=== PATIENT | male | born 1955 | race Caucasian/White ===

== ENCOUNTER 2019-06-20 08:37 | Observation (INO) ==
[2019-06-20] MEDS ORDERED: ALUM/MAG/SIMETH/LIDO VISC 1:1 30 ML BOTTLE PO ONE (09:12)
[2019-06-20] MEDS ORDERED: ALUM/MAG/SIMETH/LIDO VISC 1:1 30 ML BOTTLE PO STA (09:14)
[2019-06-20] MEDS ORDERED: ASPIRIN 325 MG TABLET PO STA (09:14)
[2019-06-20 09:19] LABS: Basophils % 0.3 % (0.0-0.8); Eosinophils % 0.3 % (0.00-10.9); Hematocrit 46.4 VOL% (42.0-52.0); Hemoglobin 15.6 GM/DL (14.0-18.0); Immature Granulocytes % 0.6 %; Immature Granulocytes Absolute 0.08 #; Lymphocytes # 1.1 10*3/uL (1.4-4.0); Mean Corpuscular HGB Conc 33.6 GM/DL (32-36); Mean Corpuscular Volume 92.4 FL (87-102); Mean Platelet Volume 10.2 FL (9.6-12.0); Monocytes % 14.6 % (1.7-12.7); Neutrophils % 76.2 % (38.7-73.9); Platelet Count 234 T/CUMM (130-400); Red Blood Count 5.02 MC/CUMM (3.8-5.5)
[2019-06-20] MEDS ORDERED: NITROGLYCERIN SL 0.4 MG TABLET SL PRN (09:25)
[2019-06-20] MEDS ORDERED: FUROSEMIDE 40 MG/4 ML VIAL IV STA (09:35)
[2019-06-20] MEDS ORDERED: MORPHINE 4 MG/1 ML VIAL IV STA ×2 (09:36→11:01)
[2019-06-20 09:39] LABS: Albumin 3.9 G/DL (3.4-5.0); Bilirubin,Total 0.7 MG/DL (0.2-1.0); Calcium 8.6 MG/DL (8.5-10.1); Osmolality,Calculated 269.1 MOS/KG (273-304); Total Protein 6.7 G/DL (6.4-8.3)
[2019-06-20] MEDS ORDERED: NITROGLYCERIN DRIP 50 MG/250 ML BOTTLE IV PRN (11:04)
[2019-06-20] MEDS ORDERED: ACETAMINOPHEN 325 MG TABLET PO PRN (11:31)
[2019-06-20] MEDS ORDERED: DOCUSATE SODIUM 100 MG CAPSULE PO PRN (11:31)
[2019-06-20] MEDS ORDERED: MORPHINE 4 MG/1 ML VIAL IV PRN (11:31)
[2019-06-20 13:01] LABS: Risk Ratio 4.33; Thyroid Stimulating Hormone 5.47 uIU/ml (0.358-3.74); VLDL CHOLESTEROL 14.2 MG/DL
[2019-06-20] MEDS: PANTOPRAZOLE 40 MG VIAL IV SCH (13:15)
[2019-06-20] MEDS ORDERED: MORPHINE 4 MG/1 ML VIAL IV ONE (14:07)
[2019-06-20] MEDS: GABAPENTIN 100 MG CAPSULE PO SCH ×2 (14:55→21:58)
[2019-06-20] MEDS: ACETAMINOPHEN 325 MG TABLET PO SCH ×2 (14:56→21:59)
[2019-06-20] MEDS: traMADol 50 MG TABLET PO SCH ×2 (14:56→21:59)
[2019-06-20] MEDS ORDERED: HYDROmorphone 2 MG/1 ML VIAL IV PRN (14:58)
[2019-06-20] MEDS ORDERED: INDOMETHACIN 50 MG CAPSULE PO SCH (14:58)
[2019-06-20 15:10] LABS: ABG Base Excess 1.6 MMOL/L (-2.5-2.5); ABG HCO3 25.7 MMOL/L (20-26); ABG Oxygen Saturation 95.6 % (95-100); ABG PCO2 40.5 MM HG (35-48); ABG PH 7.418 (7.35-7.45); ABG PO2 75.1 MM HG (80-95); ABG TCO2 21.9 MMOL/L (23-27)
[2019-06-20] MEDS: FLECAINIDE 100 MG TABLET PO SCH (21:57)
[2019-06-20] MEDS: INDOMETHACIN 25 MG CAPSULE PO SCH (21:58)
[2019-06-20] MEDS: METOPROLOL TARTRATE 25 MG TABLET PO SCH (21:59)
[2019-06-20] MEDS: APIXABAN 5 MG TABLET PO SCH (21:59)
[2019-06-21 04:52] LABS: Basophils # 0.1 10*3/uL (0.0-0.2); Basophils % 0.3 % (0.0-0.8); Eosinophils % 0.1 % (0.00-10.9); Hematocrit 46.2 VOL% (42.0-52.0); Hemoglobin 14.6 GM/DL (14.0-18.0); Immature Granulocytes % 0.6 %; Immature Granulocytes Absolute 0.11 #; Lymphocytes # 1.4 10*3/uL (1.4-4.0); Lymphocytes % 7.2 % (21.2-54.2); Mean Corpuscular HGB Conc 31.6 GM/DL (32-36); Mean Corpuscular Volume 96.7 FL (87-102); Mean Platelet Volume 10.6 FL (9.6-12.0); Monocytes % 14.6 % (1.7-12.7); Neutrophils % 77.2 % (38.7-73.9); Platelet Count 224 T/CUMM (130-400); Red Blood Count 4.78 MC/CUMM (3.8-5.5); Red Cell Distribution Width 12.9 % (9.3-17.3); White Blood Count 19.4 T/CUMM (4-12)
[2019-06-21 05:14] LABS: Albumin 3.2 G/DL (3.4-5.0); Bilirubin,Total 1.1 MG/DL (0.2-1.0); Calcium 8.3 MG/DL (8.5-10.1); Osmolality,Calculated 264.7 MOS/KG (273-304); Total Protein 6.7 G/DL (6.4-8.3)
[2019-06-21] MEDS: FLECAINIDE 100 MG TABLET PO SCH (08:55)
[2019-06-21] MEDS: traMADol 50 MG TABLET PO SCH (08:56)
[2019-06-21] MEDS: INDOMETHACIN 25 MG CAPSULE PO SCH (08:56)
[2019-06-21] MEDS: ACETAMINOPHEN 325 MG TABLET PO SCH (08:56)
[2019-06-21] MEDS: APIXABAN 5 MG TABLET PO SCH (08:56)
[2019-06-21] MEDS: METOPROLOL TARTRATE 25 MG TABLET PO SCH (08:57)
[2019-06-21] MEDS: GABAPENTIN 100 MG CAPSULE PO SCH ×2 (09:03→15:18)
[2019-06-21] MEDS: PANTOPRAZOLE 40 MG VIAL IV SCH (09:04)
[2019-06-21 12:01] VITALS: BP 115/79
[2019-06-21] MEDS ORDERED: IBUPROFEN 400 MG TABLET PO SCH (15:00)
== END 2019-06-21 15:31 | disposition home or self-care (01) ==
LOC: N.EDINP 08:37 → N.ED 08:37 → N.EDINP 13:16 → N.TELEN 13:30
PROVIDERS: ADMIT Family Medicine; ATTEND Family Medicine